=== PATIENT | female | born 1975 | race Two or more races ===

== ENCOUNTER 2024-03-06 12:45 | Emergency (ER) | payer OTHER ==
[~2024-03-06] VITALS: Ht 162.6 cm; Wt 89.8 kg
[2024-03-06] MEDS ORDERED: PROMETHAZINE HCL 25 MG/ML AMPUL IM ONE (15:15)
[2024-03-06] MEDS ORDERED: MEPERIDINE HCL/PF 50 MG/ML VIAL IM ONE (15:15)
[2024-03-06 15:55] LABS: HEMATOCRIT 45.3 % (36.0-45.00); MEAN CELL VOLUME 88.4 fL (80.00-100.00); MEAN CORPUSCULAR HEMOGLOBIN 29.2 pg (27.00-32.0); PLATELET COUNT 349 K/uL (150-450); RED BLOOD COUNT 5.13 M/uL (4.00-6.00); RED CELL DISTRIBUTION WIDTH 14.1 % (11.5-14.5)
[2024-03-06 16:26] LABS: URINE APPEARANCE Clear; URINE BILIRRUBIN Negative (NEGATIVE); URINE BLOOD Negative; URINE COLOR Yellow; URINE GLUCOSE Negative (NEGATIVE); URINE KETONE Negative (NEGATIVE); URINE LEUKOCYTE Negative; URINE NITRATE Negative; URINE PROTEIN Negative (NEGATIVE); URINE UROBILINOGEN 0.2 E.U./dl
[2024-03-06 16:30] LABS: URINE BACTERIA 1064.8 uL (0.0-1933); URINE EPITHELIAL CELLS 28.9 uL (0.0-38.8); URINE RBC 23.8 uL (0.0-20.8); URINE WBC 12.9 uL (0.0-23.2)
[2024-03-06 16:31] LABS: ALBUMIN 3.7 gm/dL (3.4-5.0); BILIRUBIN TOTAL 0.61 mg/dL (0.3-1.2); CALCIUM 8.9 mg/dL (8.5-10.1); CREATININE SERUM 0.9 mg/dL (0.55-1.02); GFR 66.83; GLOBULINA 4.2 G/DL (2.4-3.5); POTASSIUM 3.56 mEq/L (3.5-5.1); TOTAL PROTEIN 7.9 gm/dL (6.4-8.2)
[2024-03-06 16:48] LABS: URINE CAST 0.14 uL (0.0-1.40)
[2024-03-06] MEDS ORDERED: ORPHENADRINE CITRATE 30 MG/ML AMPUL IM ONE (19:00)
[2024-03-06] MEDS ORDERED: KETOROLAC TROMETHAMINE 60 MG VIAL IM ONE (19:00)
[2024-03-06] MEDS ORDERED: MORPHINE SULFATE 4 MG/ML VIAL IV ONE (21:15)
[2024-03-06] MEDS ORDERED: TIZANIDINE HCL4 M1 PO (22:23)
[2024-03-06] MEDS ORDERED: SURFAK240 M1 PO (22:24)
[2024-03-06] MEDS ORDERED: PEPCID AC20 MG PO (22:24)
== END 2024-03-06 22:38 | disposition home or self-care (01) ==
LOC: ER 12:47
PROVIDERS: General Practice
DX: R10.2 Pelvic and perineal pain (principal)